=== PATIENT | male | born 1955 | race Caucasian/White ===

== ENCOUNTER 2020-10-08 15:53 | Emergency (ER) | payer OTHER ==
--- NOTE | 2020-10-08 19:45 | ER ---
Nurse's Notes [facility] Name: Jaden Landin Age: 64 yrs Sex: Male : 1955 Arrival Date: 10/08/2020 Time: 16:00 Bed 7 Private MD: Diagnosis: Cellulitis of left lower limb Presentation: 10/08 16:17 Chief complaint: Patient states: L foot redness since September 05. Site is getting more ll1 painful and more swollen to front of foot and toes. Tip of L foot 2nd digit has a sore on it. Sent in for eval by V.Carmen. Coronavirus screen: Client denies travel out of the [place] in the last 14 days. At this time, the client does not indicate any symptoms associated with coronavirus-19. Ebola Screen: Patient denies travel to an Ebola-affected area in the 21 days before illness onset. Initial Sepsis Screen: Does the patient meet any 2 criteria? No. Patient's initial sepsis screen is negative. Does the patient have a suspected source of infection? Yes: Skin breakdown/wound. Risk Assessment: Do you want to hurt yourself or someone else? Patient reports no desire to harm self or others. Onset of symptoms was September 03, 2020. 16:17 Method Of Arrival: Ambulatory ll1 16:17 Acuity: WILD 3 ll1 Triage Assessment: 19:25 General: Appears in no apparent distress. comfortable, Behavior is calm, cooperative. mg2 Historical: - Allergies: 16:23 No Known Allergies; ll1 - PMHx: 16:23 Hypertension; decreased blood flow to both legs; Seizures; ll1 - PSHx: 16:23 None; ll1 - Immunization history:: Flu vaccine is not up to date. - Social history:: Smoking status: Patient denies any tobacco usage or history of. Screenin/04 19:25 Fall Risk None identified. mg2 10/08 19:25 Abuse screen: Denies threats or abuse. Denies injuries from another. Nutritional mg2 screening: No deficits noted. Tuberculosis screening: No symptoms or risk factors identified. Assessment: 19:25 General: Appears in no apparent distress. comfortable, Behavior is calm, cooperative. mg2 Pain: Denies pain. Neuro: Level of Consciousness is awake, alert, obeys commands, Oriented to person, place, time, situation. Cardiovascular: Capillary refill < 3 seconds Patient's skin is warm and dry. Respiratory: Airway is patent Respiratory effort is even, unlabored, Respiratory pattern is regular, symmetrical. GI: No signs and/or symptoms were reported involving the gastrointestinal system. : No signs and/or symptoms were reported regarding the genitourinary system. EENT: No signs and/or symptoms were reported regarding the EENT system. Derm: Skin is red, redness in the left foot noted. Musculoskeletal: Circulation, motion, and sensation intact. Capillary refill < 3 seconds. Vital Signs: 16:17 BP 175 / 68; Pulse 73; Resp 17; Temp 98.8; Pulse Ox 100% ; Weight 86.18 kg; Height 5 ll1 ft. 10 in. (177.80 cm); Pain 9/10; 19:50 BP 155 / 80; Pulse 70; Resp 18; Temp 98; Pulse Ox 100% on R/A; mg2 16:17 Body Mass Index 27.26 (86.18 kg, 177.80 cm) ll1 ED Course: 16:00 Patient arrived in ED. mr 16:22 Triage completed. ll1 16:23 Arm band placed on. ll1 19:25 Patient has correct armband on for positive identification. mg2 19:25 No provider procedures requiring assistance completed. Patient did not have IV access mg2 during this emergency room visit. 19:32 Donato Mcclure NP is PHCP. pm1 19:32 Feliciano Payton MD is Attending Physician. pm1 19:56 Travon Paula RN is Primary Nurse. mg2 Administered Medications: No medications were administered Outcome: 10/07 19:55 Discharge instructions given to patient, Instructed on discharge instructions, follow mg2 up and referral plans. medication usage, Demonstrated understanding of instructions, follow-up care, medications, Prescriptions given X 1. 0405 19:44 Discharge ordered by MD. pm1 19:55 Discharged to home ambulatory. mg2 19:55 Condition: stable 19:56 Patient left the ED. mg2 Signatures: Faye Herrera mr Donato Mcclure, FRANCINE SENIOR [employer] SQL DEVELOPER pm1 Travon aPula, JUANCHO RN mg2 Seema Gonzalez RN RN ll1 Corrections: (The following items were deleted from the chart) 16:24 16:17 Chief complaint: Patient states: L foot redness since September 05. Site is getting ll1 more painful and more swollen to front of foot and toes. Sent in for eval by Funmilayo [email or web address]
--- NOTE | 2020-10-08 19:45 | EDPHYS ---
Physician Documentation [facility] Name: Jaden Landin Age: 64 yrs Sex: Male : 1955 Arrival Date: 10/08/2020 Time: 16:00 Bed 7 Private MD: ED Physician Feliciano Payton HPI: 10/08 19:41 This 64 yrs old Male presents to ER via Ambulatory with complaints of Foot pm1 Infection. 19:41 The patient presents with pain, redness. pm1 19:41 The complaints affect the left foot. Context: the patient is able to ambulate. Onset: pm1 The symptoms/episode began/occurred Present for years but worse since the beginning of last month. Patient currently taking gabapentin and he is not having any foot pain. He has been doing soaks at home and the redness has improved. Modifying factors: The symptoms are alleviated by soaks the symptoms are aggravated by nothing. Associated signs and symptoms: Pertinent negatives: calf tenderness, fever. Severity of symptoms: in the emergency department the symptoms have improved. 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 - Social history:: Smoking status: Patient denies any tobacco usage or history of. ROS: 19:41 MS/extremity: Positive for erythema, pain, of the left foot. pm1 19:41 Constitutional: Negative for fever, chills, and weight loss, Cardiovascular: Negative for chest pain, palpitations, and edema, Respiratory: Negative for shortness of breath, cough, wheezing, and pleuritic chest pain, Back: Negative for injury and pain, Skin: Negative for injury, rash, and discoloration, Neuro: Negative for headache, weakness, numbness, tingling, and seizure. Exam: 19:41 Constitutional: This is a well developed, well nourished patient who is awake, alert, pm1 and in no acute distress. Head/Face: Normocephalic, atraumatic. 19:41 Cardiovascular: Exam negative for acute changes, Rate: normal, Rhythm: regular, Pulses: no pulse deficits are appreciated. 19:41 Respiratory: Exam negative for acute changes, respiratory distress, shortness of breath. 19:41 Skin: cellulitis, that is mild, on the left first toe and left second toe, onychomycosis left first and second toe nails. 19:41 Neuro: Exam negative for acute changes, Orientation: is normal, Motor: is normal, moves all fours. Vital Signs: 16:17 BP 175 / 68; Pulse 73; Resp 17; Temp 98.8; Pulse Ox 100% ; Weight 86.18 kg; Height 5 ll1 ft. 10 in. (177.80 cm); Pain 9/10; 19:50 BP 155 / 80; Pulse 70; Resp 18; Temp 98; Pulse Ox 100% on R/A; mg2 16:17 Body Mass Index 27.26 (86.18 kg, 177.80 cm) ll1 MDM: 19:32 Patient medically screened. pm1 19:41 Refusal of service: The patient/guardian displays adequate decision making capability pm1 and despite a detailed discussion of alternatives, benefits, risks, and consequences refuses: all lab tests, all X-rays, Patient has appointment with glass bender at the [facility] on 10/29. He just wants antibiotics. Had an negative left foot x-ray in the beginning of September. 19:41 Data reviewed: vital signs. Data interpreted: Pulse oximetry: on room air is 100 %. pm1 Interpretation: normal. 19:41 Counseling: I had a detailed discussion with the patient and/or guardian regarding: the pm1 historical points, exam findings, and any diagnostic results supporting the discharge/admit diagnosis, the need for outpatient follow up, a family practitioner, a glass bender, to return to the emergency department if symptoms worsen or persist or if there are any questions or concerns that arise at home. Administered Medications: No medications were administered Disposition: 10/09 08:16 Co-signature as Attending Physician, Feliciano Payton MD. pkl Disposition: 10/08/20 19:44 Discharged to Home. Impression: Cellulitis of left lower limb. - Condition is Stable. - Discharge Instructions: Cellulitis, Adult. - Prescriptions for Bactrim DS 800- 160 mg Oral Tablet - take 1 tablet by ORAL route every 12 hours for 10 days; 20 tablet. - Medication Reconciliation Form, Thank You Letter, Antibiotic Education, Prescription Opioid Use form. - Follow up: Emergency Department; When: As needed; Reason: Worsening of condition. Follow up: Private Physician; When: 2 - 3 days; Reason: Recheck today's complaints, Continuance of care, Re-evaluation by your physician. - Problem is new. - Symptoms have improved. Signatures: Feliciano Payton MD MD pkDonato Cantrell, CHRISTIAN COUNSELOR CHRISTIAN COUNSELOR pm1 Travon Paula, RN RN mg2 Seema Gonzalez RN RN ll1 Corrections: (The following items were deleted from the chart) 04 19:45 19:44 10/08/2020 19:44 Discharged to Home. Impression: Cellulitis of left toe. pm1 Condition is Stable. Forms are Medication Reconciliation Form, Thank You Letter, Antibiotic Education, Prescription Opioid Use. Follow up: Emergency Department; When: As needed; Reason: Worsening of condition. Follow up: Private Physician; When: 2 - 3 days; Reason: Recheck today's complaints, Continuance of care, Re-evaluation by your physician. Problem is new. Symptoms have improved. pm1 19:56 19:45 10/08/2020 19:44 Discharged to Home. Impression: Cellulitis of left lower limb. mg2 Condition is Stable. Forms are Medication Reconciliation Form, Thank You Letter, Antibiotic Education, Prescription Opioid Use. Follow up: Emergency Department; When: As needed; Reason: Worsening of condition. Follow up: Private Physician; When: 2 - 3 days; Reason: Recheck today's complaints, Continuance of care, Re-evaluation by your physician. Problem is new. Symptoms have improved. pm1
== END 2020-10-08 19:56 | disposition home or self-care (01) ==
LOC: ER 15:53
DX: L03.116 Cellulitis of left lower limb (principal); I10 Essential (primary) hypertension
CPT/HCPCS: 99282